=== PATIENT | male | born 1980 | race Caucasian/White ===

== ENCOUNTER 2022-03-30 14:47 | Emergency (ER) | payer OTHER, SELFPAY ==
--- NOTE | 2022-03-30 14:49 | ED.ABDPAIN ---
HPI - Abdominal Pain General Chief Complaint: Unspecified Stated Complaint: Abdominal Pain Time Seen by Provider: 03/30/22 14:49 Source: patient and RN notes reviewed History of Present Illness HPI narrative: Patient is a 41-year-old male who presents the urgent care with his spouse with complaints of left abdominal pain. Patient states that it started approximately 2 weeks ago in the flank region and he assumed it was related to kidney stones which she has had several in the past. Patient states that he did go to his primary care doctor and was given Bactrim for a possible UTI as well as a CT study to rule out kidney stones. Patient states that no stones were seen on the CT scan and he does not believe he passed any. Patient states he has not been able to eat for the last couple days due to the increase in pain. Patient reports of nausea and some body aches but denies of any known fevers, vomiting, diarrhea. Patient denies of any abdominal history with the exception of kidney stones. No other acute complaints. No acute distress noted. Patient aware of the plan of care. Some parts of this dictation were generated by voice recognition software and may contain typographical and/or grammatical inaccuracies. Related Data Home Medications Medication Instructions Recorded Confirmed sulfamethoxazole 800 1 tablet PO BID 03/30/22 03/30/22 mg-trimethoprim 160 mg tablet Allergies Allergy/AdvReac Type Severity Reaction Status Date / Time No Known Allergies Allergy Verified 03/30/22 15:01 Review of Systems Review of Systems: CONSTITUTIONAL: Reports of chills and sweats EYES: Denies visual changes, redness, or discharge. ENT: Denies rhinorrhea, congestion, sore throat, or otalgia. CARDIOVASCULAR: Denies chest pain, palpitations, or edema. RESPIRATORY: Denies cough or dyspnea. GASTROINTESTINAL: Reports of left lower abdominal pain with nausea GENITOURINARY: Denies dysuria or hematuria. SKIN: Denies rash or itching. MUSCULOSKELETAL: Denies back pain, joint pain, or myalgia. NEUROLOGIC: Denies headache, numbness, or weakness. All other systems reviewed are negative, except as documented in HPI. PMFSH Comments At the time of my signature, I reviewed and agree with the nursing past medical, surgical, social, and family history. There is no relevant family history pertinent to the patient complaint. Exam Narrative: GENERAL: This is a well-nourished, well-developed patient, in no apparent distress. HEAD: normocephalic, atraumatic. EYES: PERRL. Sclera clear/white. Vision is grossly intact. EARS: External ears normal NOSE: External nose normal with no obvious nasal discharge, nares without redness, no rhinorrhea. THROAT: Mucous membranes moist NECK: Neck supple CARDIOVASCULAR: Regular rate and rhythm without murmurs, gallops, or rubs. RESPIRATORY: Clear to auscultation. Breath sounds equal bilaterally. No wheezes, rales, or rhonchi. GASTROINTESTINAL: Moderate left lower abdominal tenderness radiating to the left flank. Mild suprapubic tenderness as well as substernal SKIN: warm, intact with no suspicious lesions or rash, good texture and turgor. NEURO: awake, alert, and oriented to person, place and time. There were no obvious focal neurologic abnormalities. EXTREMITIES: No clubbing, cyanosis, or edema. BACK: Negative bilateral CVA tenderness Course Course Level of Care: Express Care Visit Vital Signs Vital signs: Vital Signs Temperature 97.6 F 03/30/22 14:55 Pulse Rate 66 03/30/22 14:55 Respiratory Rate 18 03/30/22 14:55 Blood Pressure 116/74 03/30/22 14:55 Pulse Oximetry 98 03/30/22 14:55 Oxygen Delivery Room Air 03/30/22 14:55 Temperature 97.6 F 03/30/22 14:55 Pulse Rate 66 03/30/22 14:55 Respiratory Rate 18 03/30/22 14:55 Blood Pressure 116/74 03/30/22 14:55 Pulse Oximetry 98 03/30/22 14:55 Oxygen Delivery Room Air 03/30/22 14:55 Reviewed Transfer Transfered to: Dionte
[2022-03-30 14:55] VITALS: BP 116/74; PULSE 66; RESP 18; TEMP 36.4; O2SAT 98
== END 2022-03-30 15:53 | disposition short-term general hospital (02) ==
PROVIDERS: Emergency Provider Nurse Practitioner Family; PCP Internal Medicine
DX: R10.32 Left lower quadrant pain (principal); Z87.442 Personal history of urinary calculi
CPT/HCPCS: 81003; 87086; 99203; G0463